=== PATIENT | male | born 2000 | race Caucasian/White ===

== ENCOUNTER 2020-09-06 13:29 | Emergency (ER) | payer SELFPAY | END 2020-09-06 15:45 | disposition left against medical advice (07) | PROVIDERS: Emergency Provider Emergency Medicine | DX: Z11.3 Encounter for screening for infections with a predominantly sexual mode of transmission (principal) ==

== ENCOUNTER 2021-01-02 09:09 | Emergency (ER) | payer OTHER, SELFPAY ==
--- NOTE | ~2021-01-02 | XR_ITS ---
EXAMINATION: XR FOOT, RIGHT CLINICAL INFORMATION: Injury and swelling great toe. COMPARISON: None TECHNIQUE: AP, lateral, and oblique views of the right foot. FINDINGS: There is no acute healing fracture, dislocation, destructive process. There is no joint narrowing or erosive change. Bony mineralization is normal. No periostitis. XR/XR foot RT min 3V IMPRESSION: No fracture, dislocation, or arthropathy.
[2021-01-02 09:16] VITALS: BP 95/76; PULSE 69; RESP 18; TEMP 36.6; O2SAT 99; BMI 22.6
--- NOTE | 2021-01-02 10:08 | ED_ITS ---
HPI - Extremity Injury (Lower) General Chief Complaint: Extremity Injury, Lower Stated Complaint: toe injury Time Seen by Provider: 01/02/21 09:38 Source: patient Mode of arrival: ambulatory History of Present Illness HPI Narrative: 20-year-old male with no significant past medical history presenting to the ED complaining of right great toe pain s/p rolling foot [place]. Denies injury to other area, numbness, tingling, weakness. Admits to erythema and swelling MD complaint: foot injury Related Data Previous Rx's Medication Instructions Recorded acetaminophen [Tylenol Extra 500 mg PO Q6H PRN #20 tab 01/02/21 Strength] naproxen 500 mg PO BID PRN 10 Days #20 tab 01/02/21 Allergies Allergy/AdvReac Type Severity Reaction Status Date / Time No Known Allergies Allergy Verified 01/02/21 09:19 [No Known Allergies*] Review of Systems Review of Systems: Constitutional: No Fever, No Chills Musculoskeletal: + joint pain, No Myalgias, + Joint Swelling Skin: No Skin Lesions, No rash Neuro: No Weakness, No Numbness, No Paresthesias Yes all other systems are reviewed and are negative Neurologic: Denies Sensory deficit (Neuro) [facility] Past Medical History Attestation statement: The following information was validated with the patient. Medical History (Updated 01/02/21 @ 10:37 by GAYLA Patel) No known health problems Social History Social History Advance Directives: Yes Advance Directives Information Provided: No Advance Directives on File: No Physical Exam Vital Signs: Vital Signs: Last Vital Signs Temp 97.8 F 01/02/21 09:16 Pulse 69 01/02/21 09:16 Resp 18 01/02/21 09:16 BP 95/76 01/02/21 09:16 Pulse Ox 99 01/02/21 09:16 Body Mass Index 22.6 Const: General: cooperative, healthy appearing, no acute distress, well developed, alert and awake Orientation/consciousness: patient oriented x3 Limitations: no limitations HENMT: Head: Yes normal to inspection Ears: hearing grossly normal bilaterally General nose exam: Normal external nose present Face and sinus: Yes normal facial exam Eyes: General: appearance normal, both eyes and all related structures EOM: EOMs intact bilaterally Neck: Neck: Yes normal visual inspection Resp: Effort & Inspection: normal respiratory effort Auscultation: clear to auscultation bilaterally Cardio: Rate: regular rate Peripheral pulses: dorsalis pedis present Skin: Rashes: no rashes Wounds: no wounds Neuro: General: patient oriented x3 Gait exam (Neuro): Normal gait present Sensory Exam: No Sensory deficit (Neuro) Extrem: Other: Right great toe with notable erythema swelling 1st MTP with medial ecchymosis. Tender to palpation. Sensation intact to light touch. Neurovascularly intact. Course Course Course Narrative: XR foot RT min 3V IMPRESSION: No fracture, dislocation, or arthropathy >> discussed with patient. Franklyn wrap applied for comfort. Is to follow up with PCP MDM - Extremity Injury (Lower) MDM Narrative Medical decision making narrative: 20-year-old male with no significant past medical history presenting to the ED complaining of right great toe pain s/p rolling foot while [place] the [place]. On exam VS, NAD /well-appearing, physical exam as above. Rule out fracture/ dislocation versus strain plan: X-rays Medical Records Attestation: I reviewed the patient's medical records. Discharge Plan Discharge Clinical Impression: Pain of right great toe Patient Disposition: Home, Self-Care Instructions: Arthralgia (ED) Additional Instructions: Your x-rays are unremarkable. Wear Franklyn wrap at home as needed for pain/comfort Ice and elevate her foot Take Tylenol and naproxen Take naproxen with food it is an anti-inflammatory/pain medication With her primary care doctor as needed If her symptoms persist or worsen, become unbearable please return to the ED Prescriptions: New acetaminophen [Tylenol Extra Strength] 500 mg tablet 500 mg PO Q6H PRN (Reason: pain or fever) Qty: 20 RF: 0 naproxen 500 mg tablet 500 mg PO BID PRN (Reason: pain) 10 Days Qty: 20 RF: 0 Referrals: Physician,Unknown [Primary Care Provider] - 2 days Stand Alone Forms: Work/School Release
== END 2021-01-02 10:48 | disposition home or self-care (01) ==
PROVIDERS: Emergency Provider Emergency Medicine
DX: M79.674 Pain in right toe(s) (principal)
CPT/HCPCS: 73630; 99283